=== PATIENT | female | born 1945 | race Caucasian/White ===

== ENCOUNTER 2023-12-19 08:59 | Observation (INO) | payer MEDICARE, OTHER ==
[~2023-12-19 08:59] MED LIST: Albuterol/Ipratropium 3.0-0.5 MG/3 ML Neb Soln NEB ONE; predniSONE 20 MG Tab PO ONE
[2023-12-19 09:00] LABS: BASOPHILS PERCENT AUTO 0.4 % (0.0-1.0); EOSINOPHILS PERCENT AUTO 8.8 % (1.0-3.0); HEMATOCRIT 47.6 % (37.0-47.0); HEMOGLOBIN 15.2 g/dL (12.0-16.0); LYMPHOCYTES PERCENT AUTO 12.4 % (20.5-50.1); MEAN CORPUSCULAR HEMOGLOBIN 28.7 pg (27.0-34.0); MEAN CORPUSCULAR HGB CONC 31.9 g/dL (33.0-35.0); MONOCYTES PERCENT AUTO 8.3 % (2-8); NEUTROPHILS PERCENT AUTO 70.1 % (42.2-75.2); PLATELET COUNT,PLT 315 10^3/uL (150-450); RED BLOOD CELL COUNT 5.29 10^6/uL (4.2-5.4); WHITE BLOOD CELL COUNT,WBC 13.3 10^3/uL (5.0-10.0)
[2023-12-19 09:19] LABS: ALBUMIN 3.6 g/dL (3.4-5.0); ANION GAP 15.2 mEq/L (7-13); BUN/CREATININE RATIO 25.7 (No establ ref range); CALCIUM 8.8 mg/dL (8.5-10.1); CREATININE 0.7 mg/dL (0.55-1.02); EST CRCL DRUG DOSING (CG) 51.59 mL/min; POTASSIUM,K 4.2 mmol/L (3.5-5.1); PROTEIN TOTAL,TP 7.2 g/dL (6.4-8.2)
[2023-12-19] MEDS ORDERED: Albuterol/Ipratropium 3.0-0.5 MG/3 ML Neb Soln NEB ONE (10:46)
[2023-12-19 11:40] LABS: CORONAVIRUS COVID-19 NAA NEGATIVE (NEGATIVE); INFLUENZA A NAA NEGATIVE (NEGATIVE); INFLUENZA B NAA NEGATIVE (NEGATIVE); RESPIRATORY SYNCYTIAL VIR NAA NEGATIVE (NEGATIVE)
[2023-12-19] MEDS ORDERED: Sennosides/Docusate Sodium 50-8.6 MG Tab PO PRN (12:14)
[2023-12-19] MEDS ORDERED: Acetaminophen 325 MG Tab PO PRN (12:14)
[2023-12-19] MEDS ORDERED: Polyethylene Glycol 3350 Powder 17 GM Packet PO PRN (12:14)
[2023-12-19] MEDS ORDERED: Albuterol/Ipratropium 3.0-0.5 MG/3 ML Neb Soln NEB PRN ×2 (12:14→15:28)
[2023-12-19] MEDS ORDERED: Sodium Chloride 0.9% 10 ML Syringe FLUSH PRN (12:14)
[2023-12-19] MEDS ORDERED: Ketorolac 30 MG/ML SDV IVPUSH PRN ×2 (12:14→12:20)
[2023-12-19] MEDS ORDERED: Magnesium Hydroxide 400 MG/5 ML Susp 30 ML Cup PO PRN (12:14)
[2023-12-19] MEDS ORDERED: Ondansetron 4 MG/2 ML SDV IVPUSH PRN (12:14)
[2023-12-19] MEDS ORDERED: Metoprolol Tartrate 5 MG/5 ML SDV IVPUSH PRN (12:18)
[2023-12-19] MEDS ORDERED: traMADol 50 MG Tab PO PRN (12:18)
[2023-12-19] MEDS ORDERED: hydrALAZINE 20 MG/ML SDV IVPUSH PRN (12:18)
[2023-12-19] MEDS ORDERED: Non-Formulary Medication 1 Each (Azelastine [Astelin Nasal Soln] 30 ML Bottle) NAS PRN (12:19)
[2023-12-19] MEDS ORDERED: Magnesium Sulfate/Water 2 GM in Premix Bag 1 BAG IV ONE (12:19)
[2023-12-19] MEDS ORDERED: OLOPATADINE HCL EYEBOTH PRN (12:19)
[2023-12-19] MEDS ORDERED: Glucagon,Human Recombinant 1 MG Vial IM PRN (12:23)
[2023-12-19] MEDS ORDERED: 50% Dextrose in Water 50 ML Syringe IVPUSH PRN (12:23)
[2023-12-19] MEDS ORDERED: guaiFENesin/Dextromethorphan 100-10 MG/5 ML Soln 5 ML Cup PO PRN (12:28)
[2023-12-19] MEDS ORDERED: guaiFENesin 600 MG Tab.ER PO ONE (13:07)
[2023-12-19] MEDS ORDERED: Azithromycin 500 MG in Sodium Chloride 0.9% 250 ML IV ONE (13:08)
[2023-12-19] MEDS ORDERED: cefTRIAXone 2 GM Vial IVPUSH ONE (13:11)
[2023-12-19] MEDS ORDERED: Benzonatate 100 MG Cap PO PRN (13:24)
[2023-12-19] MEDS: Pantoprazole 40 MG Tab.CR PO SCH (15:43)
[2023-12-19] MEDS: Albuterol/Ipratropium 3.0-0.5 MG/3 ML Neb Soln NEB SCH ×2 (16:36→17:51)
[2023-12-19] MEDS: Insulin Lispro 100 Units/ML 3 ML Vial SUBCUT SCH (17:02)
[2023-12-19] MEDS: Magnesium Oxide 400 MG Tab PO SCH (17:03)
[2023-12-19] MEDS: Carvedilol 6.25 MG Tab PO SCH (17:03)
[2023-12-19] MEDS ORDERED: Albuterol 0.083% 2.5 MG/3 ML Neb Soln NEB SCH (18:00)
[2023-12-19] MEDS ORDERED: Loratadine 10 MG Tab PO SCH (21:00)
[2023-12-19] MEDS ORDERED: Oxybutynin 5 MG Tab.ER PO SCH (21:00)
[2023-12-19] MEDS ORDERED: Dorzolamide/Timolol 2%-0.5% Ophth Soln 10 ML Bottle EYEBOTH SCH (21:00)
[2023-12-19] MEDS ORDERED: Montelukast 10 MG Tab PO SCH (21:00)
[2023-12-19] MEDS: guaiFENesin 600 MG Tab.ER PO SCH (21:01)
[2023-12-19] MEDS: traMADol 50 MG Tab PO SCH (21:01)
[2023-12-19] MEDS: Ascorbic Acid 500 MG Tab PO SCH (21:01)
[2023-12-19] MEDS: methylPREDNISolone Sodium Succinate 40 MG/1 ML SDV IVPUSH SCH (21:03)
[2023-12-19] MEDS: Sodium Chloride 0.9% 10 ML Syringe FLUSH SCH (21:03)
[2023-12-19] MEDS: [UNRECOGNIZED DRUG - OTHER] EYERT SCH (21:04)
[2023-12-19] MEDS: TIMOLOL EYEBOTH SCH (21:05)
[2023-12-19] MEDS: DORZOLAMIDE EYEBOTH SCH (21:05)
[2023-12-20] MEDS: Albuterol/Ipratropium 3.0-0.5 MG/3 ML Neb Soln NEB SCH ×2 (05:10→09:10)
[2023-12-20] MEDS: Pantoprazole 40 MG Tab.CR PO SCH (06:09)
[2023-12-20 06:42] LABS: BASOPHILS PERCENT AUTO 0.1 % (0.0-1.0); EOSINOPHILS PERCENT AUTO 0.1 % (1.0-3.0); HEMOGLOBIN 14.1 g/dL (12.0-16.0); LYMPHOCYTES PERCENT AUTO 8.1 % (20.5-50.1); MEAN CORPUSCULAR HEMOGLOBIN 29.1 pg (27.0-34.0); MEAN CORPUSCULAR HGB CONC 32.8 g/dL (33.0-35.0); MEAN CORPUSCULAR VOLUME 88.8 fL (80-100); MONOCYTES PERCENT AUTO 2.5 % (2-8); NEUTROPHILS PERCENT AUTO 89.2 % (42.2-75.2); PLATELET COUNT,PLT 342 10^3/uL (150-450); RED BLOOD CELL COUNT 4.84 10^6/uL (4.2-5.4); WHITE BLOOD CELL COUNT,WBC 8.7 10^3/uL (5.0-10.0)
[2023-12-20 06:53] LABS: ALBUMIN 3.1 g/dL (3.4-5.0); ANION GAP 16.2 mEq/L (7-13); BUN/CREATININE RATIO 19.7 (No establ ref range); CALCIUM 8.5 mg/dL (8.5-10.1); CREATININE 0.76 mg/dL (0.55-1.02); EST CRCL DRUG DOSING (CG) 47.52 mL/min; MAGNESIUM 2.3 mg/dL (1.8-2.4); POTASSIUM,K 4.2 mmol/L (3.5-5.1); PROTEIN TOTAL,TP 6.7 g/dL (6.4-8.2)
[2023-12-20 07:07] LABS: A/G RATIO 0.86
[2023-12-20] MEDS: methylPREDNISolone Sodium Succinate 40 MG/1 ML SDV IVPUSH SCH ×2 (08:37→12:00)
[2023-12-20] MEDS: Ascorbic Acid 500 MG Tab PO SCH (08:47)
[2023-12-20] MEDS: Carvedilol 6.25 MG Tab PO SCH (08:47)
[2023-12-20] MEDS: guaiFENesin 600 MG Tab.ER PO SCH (08:47)
[2023-12-20] MEDS: Magnesium Oxide 400 MG Tab PO SCH (08:47)
[2023-12-20] MEDS: Sodium Chloride 0.9% 10 ML Syringe FLUSH SCH (08:48)
[2023-12-20] MEDS: traMADol 50 MG Tab PO SCH (08:48)
[2023-12-20] MEDS: Insulin Lispro 100 Units/ML 3 ML Vial SUBCUT SCH ×2 (08:53→12:01)
[2023-12-20] MEDS: TIMOLOL EYEBOTH SCH (08:54)
[2023-12-20] MEDS: DORZOLAMIDE EYEBOTH SCH (08:54)
[2023-12-20] MEDS: [UNRECOGNIZED DRUG - OTHER] EYERT SCH (08:55)
[2023-12-20] MEDS ORDERED: Cholecalciferol (Vitamin D3) 10 MCG Tab PO SCH (09:00)
[2023-12-20] MEDS ORDERED: Multivitamin Tab PO SCH (09:00)
[2023-12-20] MEDS ORDERED: NEBIVOLOL 10 MG PO SCH (09:00)
[2023-12-20] MEDS ORDERED: Non-Formulary Medication 1 Each (Psyllium [Metamucil] 0.52 GM Cap) PO SCH (09:00)
[2023-12-20] MEDS ORDERED: cefTRIAXone 1 GM Vial IVPUSH SCH (09:00)
[2023-12-20] MEDS ORDERED: Celecoxib 100 MG Cap PO SCH (09:00)
[2023-12-20] MEDS ORDERED: Azithromycin 500 MG in Sodium Chloride 0.9% 250 ML IV SCH (09:00)
== END 2023-12-20 12:35 | disposition home or self-care (01) ==
LOC: DL.ED 08:59 → INTOOBSV 10:52 → UNDOADMIN 10:52 → DL.MS 10:52
PROVIDERS: ADMIT Internal Medicine; ATTEND Internal Medicine
DX: J96.01 Acute respiratory failure with hypoxia (principal); J44.1 Chronic obstructive pulmonary disease with (acute) exacerbation; I10 Essential (primary) hypertension; E78.5 Hyperlipidemia, unspecified; K21.9 Gastro-esophageal reflux disease without esophagitis; E66.9 Obesity, unspecified; Z79.899 Other long term (current) drug therapy; Z88.0 Allergy status to penicillin; Z88.8 Allergy status to other drugs, medicaments and biological substances
CPT/HCPCS: 0241U; 36415; 71046; 80053; 82947; 83735; 83880; 85025; 86140; 87070; 87205; 93005; 94010; 94060; 94640; 94667; 94668; 94760; 94761; 96365; 96366; 96368; 96375; 96376; A9270; G0378; J0456; J0696; J1815; J2920; J3475; J7050; J7512; 93010; 99285; J3490; J7620-GY